=== PATIENT | male | born 1970 | race Caucasian/White ===

== ENCOUNTER 2024-04-30 14:11 | Outpatient (REF) | payer OTHER, SELFPAY ==
--- NOTE | ~2024-04-30 | XR_ITS ---
EXAMINATION: XR KNEE, LEFT CLINICAL INFORMATION: LEFT KNEE PAIN COMPARISON: None available. TECHNIQUE: AP and lateral views of the left knee. FINDINGS: Normal bone mineralization. Benign appearing mixed lytic and sclerotic abnormalities within the metaphyses of the distal femur and proximal tibia, in keeping with medullary bone infarctions. Major differential would include osteochondromas although considered less likely given the multifocality. No significant arthritis evident. Joint spaces preserved in all 3 compartments. Alignment is normal. There is a small amount of joint fluid in the suprapatellar bursa. No significant joint effusion. No soft tissue abnormalities. XR/XR knee LT 2V IMPRESSION: 1. No acute findings of the left knee. 2. Mixed lytic and sclerotic foci in the metaphyses of the femur and tibia most consistent with medullary bone infarcts. 3. The remainder of the exam is normal. Electronically signed by: Delano Guajardo MD 07/09/2024 03:29 PM [facility]
--- NOTE | ~2024-04-30 | XR_ITS ---
EXAMINATION: XR KNEE, RIGHT CLINICAL INFORMATION: RIGHT KNEE PAIN. COMPARISON: None available. TECHNIQUE: AP and lateral views of the right knee. FINDINGS: Normal bone mineralization. Benign appearing mixed lytic and sclerotic abnormalities within the metaphyses of the distal femur and proximal tibia, in keeping with medullary bone infarctions. Major differential would include osteochondromas although considered less likely given the multifocality. No significant arthritis evident. Joint spaces preserved in all 3 compartments. Alignment is normal. There is a small amount of joint fluid in the suprapatellar bursa. No significant joint effusion. No soft tissue abnormalities. XR/XR knee RT 2V IMPRESSION: 1. No acute findings of the right knee. 2. Mixed lytic and sclerotic foci in the metaphyses of the femur and tibia most consistent with medullary bone infarcts. 3. The remainder of the exam is normal. Electronically signed by: Delano Guajardo MD 07/09/2024 03:29 PM [facility]
--- NOTE | ~2024-04-30 | XR_ITS ---
EXAMINATION: XR SHOULDER, RIGHT CLINICAL INFORMATION: RIGHT SHOULDER PAIN COMPARISON: None available. TECHNIQUE: AP external rotation, Grashey, scapular Y, and axillary views of the right shoulder. FINDINGS: Normal bone mineralization. No evidence of fracture, dislocation, or suspicious bone lesion. Normal alignment of the left shoulder joint. Minimal degenerative arthritic changes of the glenohumeral joint. Mild arthritic changes of the AC joint without significant undersurface spurring. Neutral lateral acromion with tiny spurs. No significant supraspinatus outlet narrowing. Subacromial space is preserved. Remainder the bony and soft tissue structures appear normal. XR/XR shoulder RT min 2V IMPRESSION: 1. No acute findings right shoulder. 2. Minimal degenerative arthritis right glenohumeral joint. 2. Mild spurring AC joint and undersurface of the distal acromion. Electronically signed by: Delano Guajardo MD 07/11/2024 02:58 PM [facility]
--- NOTE | ~2024-04-30 | XR_ITS ---
EXAMINATION: XR SHOULDER, LEFT CLINICAL INFORMATION: LEFT SHOULDER PAIN COMPARISON: None available. TECHNIQUE: Three views of the left shoulder. FINDINGS: Normal bone mineralization. No evidence of fracture, dislocation, or suspicious bone lesion. Normal alignment of the left shoulder joint. No significant arthritic changes of the glenohumeral joint. Minimal arthritic changes of the AC joint without undersurface spurring. Neutral lateral acromion with tiny spurs. No significant supraspinatus outlet narrowing. Subacromial space is preserved. Remainder the bony and soft tissue structures appear normal. XR/XR shoulder LT min 2V IMPRESSION: 1. No acute findings left shoulder. 2. Normal glenohumeral joint. 2. Mild spurring AC joint and undersurface of the distal acromion. Electronically signed by: Delano Guajardo MD 07/11/2024 02:56 PM [facility]
--- NOTE | ~2024-04-30 | XR_ITS ---
EXAMINATION: XR CHEST CLINICAL INFORMATION: SOB. HX 30 + YEARS TOBACCO USE. COMPARISON: None available. TECHNIQUE: 2 views of the chest were obtained. FINDINGS: The cardiac, hilar, and mediastinal contours are normal. The lungs are mildly hyperaerated, however clear bilaterally. There is no pneumothorax or pleural effusion. There is no focal osseous or soft tissue abnormality. XR/XR chest 2V IMPRESSION: No active pulmonary disease. Electronically signed by: Delano Guajardo MD 07/09/2024 03:26 PM [facility]
== END 2024-04-30 14:12 | disposition home or self-care (01) ==
LOC: HO.HMGCX 14:11
PROVIDERS: PCP Internal Medicine; Visit Provider Internal Medicine
DX: R06.02 Shortness of breath (principal); Z72.0 Tobacco use; M25.561 Pain in right knee; M25.562 Pain in left knee; M25.511 Pain in right shoulder; M25.512 Pain in left shoulder
CPT/HCPCS: 71046; 73030; 73560

== ENCOUNTER → 2024-04-30 14:20 | Outpatient (BNV) | payer OTHER, SELFPAY | PROVIDERS: PCP Internal Medicine; Visit Provider Radiology Diagnostic Radiology | DX: M25.511 Pain in right shoulder (principal); M25.512 Pain in left shoulder | CPT/HCPCS: 71046; 73030; 73560 ==

== ENCOUNTER 2025-04-28 14:36 | Outpatient (AMB) | payer OTHER, SELFPAY ==
--- NOTE | 2025-04-28 14:39 | MHC.PC.OV ---
Vital Signs 04/28/25 14:41 Height 5 ft 8.9 in Weight 178 lb BMI 26.4 BP 114/86 Blood Pressure Location Lt brachial Position Sitting Respiration 16 Pulse 73 Pulse Source Pulse Oximeter Temp 98.2 F Temp Source Oral Pulse Oximetry (%) 95 Oxygen Delivery Method Room Air Intake Visit Reasons: [employer]/ Back pain Director Of Events Required: No Accompanied by: Self / Same As Patient Allergies Penicillins Allergy (Mild, Verified 04/28/25 14:43) Rash Tobacco use date assessed: 04/28/25 Dental Screening Dental Screen Date: 04/28/25 Did you have a dental visit in the last 12 months?: No Did you have a dental problem in the last 6 months where you did not have access to dental care?: No Was dental information given to patient?: No HPI HPI Comments History of Present Illness Details History of Present Illness The patient is a 54-year-old male presenting with multiple complaints including a stye, chronic lower back pain, knee pain, and insomnia. Hordeolum (stye): - The patient reports a recurrent stye on the left eye, previously experienced earlier this year, which swelled before coming to a head. - He has attempted self-treatment with Stridex pads, mistaking it for a pimple, and has been advised to use warm compresses to expedite resolution. Gout: - The patient has a history of gout with the last attack occurring approximately a year ago. - He was previously prescribed allopurinol but discontinued it due to adverse effects, using it only during flare-ups. Chronic lower back pain with possible sciatica: - The patient reports chronic lower back pain for several years, with pain radiating down the left leg, suggestive of sciatica. - No prior imaging has been conducted for this condition. Bilateral knee pain: - The patient experiences bilateral knee pain, which has been persistent for years and affects his mobility. 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 Right shoulder pain: - The patient reports right shoulder pain, particularly when lifting, which has been ongoing for an unspecified duration. Insomnia: - The patient has chronic insomnia, characterized by difficulty falling asleep and feeling fatigued upon waking. - He denies using any sleep aids and has not established a bedtime routine. Panic attacks: - The patient reports experiencing panic attacks, which he associates with the stress of his mother's recent passing. Allergies: - The patient suffers from allergic rhinitis, for which he takes Claritin, although financial constraints limit his access to medication. Tobacco use disorder: - The patient has a 40-year history of smoking and continues to smoke. Review of Systems - Eyes: Reports recurrent stye on the left eye. - Musculoskeletal: Reports chronic lower back pain radiating to the left leg, bilateral knee pain, and right shoulder pain. - Neurological: Reports insomnia and panic attacks. - Respiratory: Denies dyspnea or cough. - Gastrointestinal: Denies changes in bowel habits. - Allergic/Immunologic: Reports allergic rhinitis. 10-point ROS reviewed and negative except as noted in HPI Past Medical History - Gout, last attack approximately one year ago. - Chronic lower back pain with possible sciatica. - Bilateral knee pain with history of tendinitis in the left knee. - Right shoulder pain. - Insomnia, chronic. - Panic attacks, associated with stress. - Allergic rhinitis. - Tobacco use disorder, 40-year history of smoking. Health Maintenance - Colon cancer screening with stool test (Cologuard) discussed and planned. - Low dose CT scan for lung cancer screening due to smoking history. Physical Exam General: Well-appearing, in no acute distress. Vital signs: Within normal limits. HEENT: Normocephalic, atraumatic. PERRLA, EOMI. Conjunctiva clear, sclera anicteric. Oropharynx clear, mucous membranes moist. TMs intact bilaterally. Noted stye on the left eye. Neck: Supple, no lymphadenopathy, no thyromegaly, no JVD or carotid bruits. Cardiovascular: RRR, normal S1/S2, no murmurs, rubs, or gallops. Peripheral pulses 2+ and symmetric. No edema. Respiratory: Lungs clear to auscultation bilaterally, no wheezes, rales, or rhonchi. Normal effort. Abdomen: Soft, non-tender, non-distended. Normoactive bowel sounds. No hepatosplenomegaly, no masses. MSK: Full range of motion, no joint swelling or deformity. Normal gait. Reports chronic lower back pain with sciatica on the left side, bilateral knee pain, and right shoulder pain. History of tendinitis in the left knee. Skin: Warm, dry, intact. No rashes, lesions, or pallor. Neuro: Alert and oriented x3. Cranial nerves II-XII intact. Strength 5/5 throughout. Sensation intact. Reflexes 2+ symmetric. Normal coordination and gait. Psych: Appropriate mood and affect. Normal judgment and insight. Reports panic attacks and trouble sleeping. Plan 1. Hordeolum (Stye) - Advise warm compresses to facilitate drainage and resolution. - Consider ibuprofen for pain management if needed. 2. Gout - Discussed previous use of allopurinol and its discontinuation due to side effects. - No current medication plan due to patient's preference to avoid pills. 3. Chronic Lower Back Pain With Possible Sciatica - Plan to obtain x-ray of the lumbar spine to assess for underlying pathology. - Recommend ibuprofen for pain relief and heat application for muscle relaxation. 4. Bilateral Knee Pain - Plan to consider physical therapy for strengthening and pain management. - Ibuprofen prescribed for pain relief. 5. Right Shoulder Pain - Plan to obtain x-ray to evaluate the shoulder. - Consider physical therapy for strengthening and pain management. 6. Insomnia - Referral to cognitive behavioral therapy for insomnia (CBTI) for sleep management. - Discussed use of melatonin as a natural sleep aid. 7. Panic Attacks - Consider referral to therapy for management of panic attacks and associated stress. 8. Allergic Rhinitis - Prescribed Claritin for symptom management, ensuring insurance coverage. 9. Tobacco Use Disorder - Discussed the importance of smoking cessation and potential health benefits. Discussion Notes During the visit, we discussed the management of the patient's multiple conditions, including the use of warm compresses for the stye and ibuprofen for pain management. We also talked about the importance of smoking cessation and the benefits of cognitive behavioral therapy for insomnia. I recommended a low dose CT scan for lung cancer screening and a Cologuard test for colon cancer screening. We agreed on a follow-up visit in two weeks to review the results and adjust the treatment plan as necessary. Patient was informed and verbally consented to the use of an ambient scribe for clinic note documentation during this visit. Patient Instructions - Apply warm compresses to the stye several times a day to help it drain. - Take ibuprofen with food to manage pain, but avoid taking it on an empty stomach. - Use Claritin for allergy symptoms as prescribed. - Follow up in two weeks for results and further management. - Consider starting cognitive behavioral therapy for insomnia. - Schedule a low dose CT scan for lung cancer screening and complete the Cologuard test for colon cancer screening. [facility] Medical History (Updated 04/28/25 @ 15:14 by Cleveland Breen MD) Right shoulder pain Bilateral knee pain Arthritis Chronic pain Chronic lower back pain Family History (Updated 04/28/25 @ 14:46 by Edilia Mata MA) Father Heart problem Gout Mother COPD (chronic obstructive pulmonary disease) Kidney problem Heart problem Social History Housing: House Alcohol intake: current Alcohol intake frequency: does not drink Patient Tobacco Use Status: Current everyday Tobacco user Cigarettes Per Day: 12 service: No Current occupational status: unemployed Cognitive needs: Yes (cane) Hearing needs: No Vision needs: Yes (reading glasses) Questionnaire PHQ-9 Over the last 2 weeks, how often have you been bothered by any of the following problems? 1. Little interest or pleasure in doing things: nearly every day 2. Feeling down, depressed, or hopeless: several days 3. Trouble falling or staying asleep, or sleeping too much: nearly every day 4. Feeling tired or having little energy: nearly every day 5. Poor appetite or overeating: not at all 6. Feeling bad about yourself - or that you are a failure or have let yourself or your family down: nearly every day 7. Trouble concentrating on things, such as reading the newspaper or watching television: more than half the days 8. Moving or speaking so slowly that other people could have noticed. Or the opposite - being so fidgety or restless that you have been moving around a lot more than usual: nearly every day 9. Thoughts that you would be better off or of hurting yourself in some way: not at all Total score: 18 Source: Developed by Drs. Myles Wilks, Arlene May, Jair Ray and colleagues, with an educational handy from [employer]. Thrive Questionnaire Date Thrive assessed: 04/28/25 I am a: Patient What is your living situation today?: I choose not to answer this question Within the past 12 months, did the food you bought not last and you didn't have the money to get more?: I choose not to answer this question Within the past 12 months, did you worry whether your food would run out before you got money to buy more?: I choose not to answer this question Do you have trouble paying for medicines?: Yes Do you have trouble getting transportation to medical appointments?: Yes Do you have trouble paying your heating and electricity bill?: Yes Do you have trouble taking care of your child, family member or friend?: No Are you currently unemployed and looking for a job?: I choose not to answer this question Are you interested in more education?: I choose not to answer this question Please select the resources that you would like help with: Housing/Half-Way, Utilities and Job search/training Currently or been in a relationship where the following occur: I choose not to answer THRIVE Score: 2 AUDIT C Alcohol Use Questionnaire (AUDIT-C) 1. How often do you have a drink containing alcohol?: Never Total Score: 0 CHA-7 AMB Questionnaire CHA-7 Date CHA - 7 assessed: 04/28/25 Feeling nervous, anxious, or on edge: 3 = Nearly every day Not being able to stop or control worryin = Nearly every day Worrying too much about different things: 3 = Nearly every day Trouble relaxin = Nearly every day Being so restless that it is hard to sit still: 2 = More than half the days Becoming easily annoyed or irritable: 2 = More than half the days Feeling afraid as if something awful might happen: 3 = Nearly every day Total CHA-7 score (0-4 normal; 5-9 mild; 10-14 moderate; 15-21 severe): 19 Source: Developed by Drs. Myles Wilks, Arlene May, Jair Ray and colleagues, with an educational handy from [employer]. Physical exam (Primary Care) Currently or been in a relationship where the following occur: I choose not to answer Coding Level of Care Code New Pt Level 3 (82965) Diagnoses Encounter to establish care Z76.89 Encounter for screening, unspecified Z13.9 Counseling, unspecified Z71.9 Screening for diabetes mellitus Z13.1 Hypertension screen Z13.6 Screening for lipoid disorders Z13.220 Screening for depression Z13.31 Encounter for colorectal cancer screening Z12.11; Z12.12 Gout, unspecified cause, unspecified chronicity, unspecified site M10.9 Gout site: unspecified site Gout etiology: unspecified cause Chronicity: unspecified Overweight (BMI 25.0-29.9) E66.3 Dorsalgia of lumbar region M54.50 Sciatica, left side M54.32 Hordeolum externum (stye) H00.019 Joint pain M25.50 Difficulty walking R26.2 Fatigue R53.83 Nicotine use Z72.0 Chronic lower back pain M54.50; G89.29 Insomnia G47.00 Chronic pain G89.29 Arthritis M19.90 Bilateral knee pain M25.561; M25.562 Right shoulder pain M25.511 Assessment & Plan Assessment & Plan (1) Encounter to establish care: Code(s): Z76.89 - Persons encountering health services in other specified circumstances (2) Encounter for screening, unspecified: Code(s): Z13.9 - Encounter for screening, unspecified (3) Counseling, unspecified: Code(s): Z71.9 - Counseling, unspecified (4) Screening for diabetes mellitus: Code(s): Z13.1 - Encounter for screening for diabetes mellitus (5) Hypertension screen: Code(s): Z13.6 - Encounter for screening for cardiovascular disorders (6) Screening for lipoid disorders: Code(s): Z13.220 - Encounter for screening for lipoid disorders (7) Screening for depression: Code(s): Z13.31 - Encounter for screening for depression (8) Encounter for colorectal cancer screening: Code(s): Z12.11 - Encounter for screening for malignant neoplasm of colon; Z12.12 - Encounter for screening for malignant neoplasm of rectum (9) Gout: Code(s): M10.9 - Gout, unspecified Qualifiers: Gout site: unspecified site Gout etiology: unspecified cause Chronicity: unspecified Qualified Code(s): M10.9 - Gout, unspecified (10) Overweight (BMI 25.0-29.9): Code(s): E66.3 - Overweight (11) Dorsalgia of lumbar region: Code(s): M54.50 - Low back pain, unspecified (12) Sciatica, left side: Code(s): M54.32 - Sciatica, left side (13) Hordeolum externum (stye): Code(s): H00.019 - Hordeolum externum unspecified eye, unspecified eyelid (14) Joint pain: Code(s): M25.50 - Pain in unspecified joint (15) Difficulty walking: Code(s): R26.2 - Difficulty in walking, not elsewhere classified (16) Fatigue: Code(s): R53.83 - Other fatigue (17) Nicotine use: Code(s): Z72.0 - Tobacco use (18) Chronic lower back pain: Code(s): M54.50 - Low back pain, unspecified; G89.29 - Other chronic pain Category: Medical (19) Insomnia: Code(s): G47.00 - Insomnia, unspecified (20) Chronic lower back pain: Code(s): M54.50 - Low back pain, unspecified; G89.29 - Other chronic pain Category: Medical (21) Chronic pain: Code(s): G89.29 - Other chronic pain Category: Medical (22) Arthritis: Code(s): M19.90 - Unspecified osteoarthritis, unspecified site Category: Medical (23) Bilateral knee pain: Code(s): M25.561 - Pain in right knee; M25.562 - Pain in left knee Category: Medical (24) Right shoulder pain: Code(s): M25.511 - Pain in right shoulder Category: Medical Plan Orders: Orders HIV Ab/Ag Today Z13.9 - Encounter for screening, unspecified, Z76.89 - Persons encountering health services in other specified circumstances Lipid Panel Today Z13.9 - Encounter for screening, unspecified, Z76.89 - Persons encountering health services in other specified circumstances Vitamin B12 and Folate Today Z13.9 - Encounter for screening, unspecified, Z76.89 - Persons encountering health services in other specified circumstances Vitamin D 1,25 dihydroxy Today Z13.9 - Encounter for screening, unspecified, Z76.89 - Persons encountering health services in other specified circumstances CT lung screening Today Z13.9 - Encounter for screening, unspecified, Z72.0 - Tobacco use, Z76.89 - Persons encountering health services in other specified circumstances XR lumbar spine 2-3V Today G89.29 - Other chronic pain, M54.50 - Low back pain, unspecified, Z13.9 - Encounter for screening, unspecified, Z76.89 - Persons encountering health services in other specified circumstances XR Knee Hector 1or 2V Today G89.29 - Other chronic pain, M19.90 - Unspecified osteoarthritis, unspecified site, M54.50 - Low back pain, unspecified PT Evaluation and Treatment Today G89.29 - Other chronic pain, M19.90 - Unspecified osteoarthritis, unspecified site, M25.511 - Pain in right shoulder, M25.561 - Pain in right knee, M25.562 - Pain in left knee, M54.50 - Low back pain, unspecified Complete Blood Count Auto Diff Today Z13.9 - Encounter for screening, unspecified, Z76.89 - Persons encountering health services in other specified circumstances Comprehensive Met. Panel Today Z13.9 - Encounter for screening, unspecified, Z76.89 - Persons encountering health services in other specified circumstances Hemoglobin A1c Today Z13.9 - Encounter for screening, unspecified, Z76.89 - Persons encountering health services in other specified circumstances Hepatitis B Surface Antibody Today Z13.9 - Encounter for screening, unspecified, Z76.89 - Persons encountering health services in other specified circumstances Hepatitis B Surface Antigen Today Z13.9 - Encounter for screening, unspecified, Z76.89 - Persons encountering health services in other specified circumstances Hepatitis C Antibody Today Z13.9 - Encounter for screening, unspecified, Z76.89 - Persons encountering health services in other specified circumstances UA CC w/rflx Micro + Cult Today Z13.9 - Encounter for screening, unspecified, Z76.89 - Persons encountering health services in other specified circumstances Uric Acid Today Z13.9 - Encounter for screening, unspecified, Z76.89 - Persons encountering health services in other specified circumstances CRP High Sensitivity Today M25.50 - Pain in unspecified joint, R53.83 - Other fatigue Erythrocyte Sedimentation Rate Today M25.50 - Pain in unspecified joint, R53.83 - Other fatigue XR shoulder RT min 2V Today G89.29 - Other chronic pain, M19.90 - Unspecified osteoarthritis, unspecified site Referrals Nurse Navigator Referral G47.00 - Insomnia, unspecified Cologuard Test Z12.11 - Encounter for screening for malignant neoplasm of colon, Z12.12 - Encounter for screening for malignant neoplasm of rectum, Z13.9 - Encounter for screening, unspecified, Z76.89 - Persons encountering health services in other specified circumstances Medications: New ibuprofen 800 mg PO Q8H 30 tabs 0RF cetirizine (Allergy Relief (cetirizine)) 10 mg PO DAILY PRN 90 tabs 0RF allergy symptoms
[2025-04-28 14:41] VITALS: BP 114/86; PULSE 73; RESP 16; TEMP 36.8; O2SAT 95; BMI 26.4
== END 2025-04-28 15:18 | disposition home or self-care (01) ==
LOC: HO.HMCFMS 14:37
PROVIDERS: PCP Student in an Organized Health Care Education/Training Program; Visit Provider Student in an Organized Health Care Education/Training Program
DX: M10.9 Gout, unspecified (principal); E66.3 Overweight; M54.50 Low back pain, unspecified; M54.32 Sciatica, left side; H00.016 Hordeolum externum left eye, unspecified eyelid; M25.50 Pain in unspecified joint; R26.2 Difficulty in walking, not elsewhere classified; R53.83 Other fatigue; G47.00 Insomnia, unspecified; M25.561 Pain in right knee; M25.562 Pain in left knee; M25.511 Pain in right shoulder

== ENCOUNTER 2025-04-28 14:36 | Outpatient (REF) | payer OTHER, SELFPAY ==
[2025-04-28 17:56] LABS: MANUAL DIFF FLAG NO
[2025-04-28 18:12] LABS: Appearance Urine Clear; Glucose Urine UA Negative (Negative); PH 5.5 (5.0-9.0); Specific Gravity - Urine 1.020 (1.005-1.025); UMIC TRIGGER UACC YES
[2025-04-28 18:14] LABS: Hematocrit 41.5 % (42.0-52.0); Hemoglobin 14.6 g/dl (14.0-18.0); Imm Gran Abs Auto 0.02 X10*3/uL (0.00-0.03); Imm Gran Pct Auto 0.3 % (0.0-0.4); Lymphocytes Absolute Auto 1.9 X10*3/uL (1.2-4.9); Mean Corpuscular HGB Conc 35.2 g/dl (31.0-36.0); Mean Corpuscular Hemoglobin 34.8 pg (27.0-33.0); Mean Corpuscular Volume 98.8 fL (80.0-98.0); NRBC Abs Auto 0.000 X10*3/uL (0.0-0.012); NRBC Pct Auto 0.0 /100WBC (0.0-0.2); Platelet Count 163 X10*3/uL (160-400); Red Blood Count 4.20 X10*6/uL (4.60-5.80); White Blood Count 5.9 X10*3/uL (4.8-10.8)
[2025-04-28 18:31] LABS: Alanine Aminotransferase 34 U/L (0-40); Albumin Level 4.9 g/dL (3.5-5.0); Alkaline Phosphatase 98 U/L (39-117); Anion Gap 14 (12-20); Aspartate Amino Transferase 25 U/L (5-37); Blood Urea Nitrogen 12 mg/dL (9-16); Calcium 9.7 mg/dL (8.4-10.2); Carbon Dioxide 26 mmol/L (22-29); Chloride 108 mmol/L (96-108); Cholesterol 237 mg/dL (<200); Estimated Glomerular Filt Rate > 60; HDL Cholesterol 37 mg/dL (>40); Potassium 4.5 mmol/L (3.3-5.1); Sodium 143 mmol/L (135-145); Total Protein 7.5 g/dL (6.5-8.0); Triglycerides 105 mg/dL (<150); Uric Acid 7.4 mg/dL (3.4-7.0)
[2025-04-28 19:05] LABS: Folate 14.5 ng/mL (> or = 4.0); Vitamin B12 402 pg/mL (200-900)
[2025-04-28 19:09] LABS: Erythrocyte Sedimentation Rate 28 MM/HR (0-15)
[2025-04-29 08:23] LABS: HBS Num1 1.39 mIU/mL (0-7.99); HBsAGNum1 0.44 S/CO (0.00-0.99); HIV Num 1 0.05 S/CO (0.00-0.99); Hepatitis B Surface Antigen Negative (Negative); ~HepC Num1 0.06 S/CO (0.00-0.79); ~Hepatitis B Surface Antibody NONREACTIVE (Nonreactive); ~Hepatitis C Antibody Nonreactive (Nonreactive)
[2025-05-02 19:33] LABS: VITAMIN D (1,25 OH) D3 53 pg/mL; Vit D (1,25-Dihydroxy) Total 53 pg/mL (18-72); Vitamin D (1,25 OH) D2 <8 pg/mL
== END 2025-04-28 14:37 | disposition home or self-care (01) ==
LOC: HO.HKASLDS 14:36
PROVIDERS: PCP Student in an Organized Health Care Education/Training Program; Visit Provider Student in an Organized Health Care Education/Training Program
DX: Z76.89 Persons encountering health services in other specified circumstances (principal); Z13.9 Encounter for screening, unspecified; Z12.11 Encounter for screening for malignant neoplasm of colon; Z12.12 Encounter for screening for malignant neoplasm of rectum; Z13.1 Encounter for screening for diabetes mellitus; Z13.6 Encounter for screening for cardiovascular disorders; Z13.220 Encounter for screening for lipoid disorders; Z13.31 Encounter for screening for depression; Z71.9 Counseling, unspecified; M54.50 Low back pain, unspecified; G89.29 Other chronic pain; M25.50 Pain in unspecified joint; R53.83 Other fatigue; G47.00 Insomnia, unspecified; M19.90 Unspecified osteoarthritis, unspecified site; M25.561 Pain in right knee; M25.562 Pain in left knee; M25.511 Pain in right shoulder; F17.210 Nicotine dependence, cigarettes, uncomplicated; M10.9 Gout, unspecified; E66.3 Overweight; M54.32 Sciatica, left side; H00.019 Hordeolum externum unspecified eye, unspecified eyelid; R26.2 Difficulty in walking, not elsewhere classified; Z68.26 Body mass index [BMI] 26.0-26.9, adult
CPT/HCPCS: 36415; 80053; 80061; 81001; 82607; 82652; 82746; 83036; 84550; 85025; 85652; 86141; 86706; 86803; 87340; 87389; 99202

== ENCOUNTER 2025-05-02 15:05 | Outpatient (REF) | payer OTHER, SELFPAY ==
--- NOTE | ~2025-05-02 | XR_ITS ---
Exam: X-ray, bilateral knees.XR KNEE 1-2 VIEWS BILATERAL TECHNIQUE: AP and lateral views lower extremity joint, bilateral knees INDICATION: G89.29 - Other chronic pain COMPARISON: None available. FINDINGS: RIGHT KNEE: Patchy sclerotic areas noted in the intramedullary bone in the distal metaphysis of the femur and proximal metadiaphysis of the tibia. There is no extension to the subchondral marrow. There is no joint effusion. Joint spaces are preserved. LEFT KNEE: Patchy serpentine areas of sclerosis are noted in the distal femoral metaphysis and the proximal diaphysis and metaphysis of the tibia now extending to subchondral bone. There is no joint effusion. Joint spaces are preserved. XR/XR Knee Hector 1or 2V IMPRESSION: Right knee: Osteonecrosis of the distal femur and proximal tibia. Left knee: Osteonecrosis the distal femur and proximal tibia. Electronically signed by: Gamaliel Monet MD 05/02/2025 03:39 PM EDT
--- NOTE | ~2025-05-02 | XR_ITS ---
EXAMINATION: XR LUMBOSACRAL SPINE CLINICAL INFORMATION: M54.50 - Low back pain, unspecified COMPARISON: None available. TECHNIQUE: Three views of the lumbosacral spine. FINDINGS: There is mild arthritic calcification in the abdominal aorta. There is a transitional L5 segment that is sacralized on the left greater than right. There is mild disc space narrowing at T12-L1 and L1-2. There is no listhesis. There is mild loss of height of L4 that is likely physiologic and chronic. XR/XR lumbar spine 2-3V IMPRESSION: Sacralized L5 segment. Mild loss of height of L4 that is likely physiologic and/or chronic. Electronically signed by: Gamaliel Monet MD 05/02/2025 03:44 PM EDT
--- NOTE | ~2025-05-02 | XR_ITS ---
EXAMINATION: XR SHOULDER, RIGHT CLINICAL INFORMATION: M19.90 - Unspecified osteoarthritis, unspecified site COMPARISON: 04/30/2024. TECHNIQUE: Three views of the right shoulder. FINDINGS: Normal bone mineralization. No fracture, dislocation, or suspicious bone lesion. Normal alignment. The glenohumeral joint demonstrates minimal degenerative arthritis. The AC joint is demonstrates minimal superior surface spurring. There is a type II acromion. No undersurface spurring. The subacromial space is preserved. Remainder of the soft tissue and bony structures appear normal. XR/XR shoulder RT min 2V IMPRESSION: 1. No acute findings of the right shoulder. 2. Minimal degenerative arthritis of the glenohumeral joint and AC joint. Electronically signed by: Delano Guajardo MD 05/02/2025 03:36 PM EDT
== END 2025-05-02 15:06 | disposition home or self-care (01) ==
LOC: HO.HMGCX 15:05
PROVIDERS: PCP Student in an Organized Health Care Education/Training Program; Visit Provider Student in an Organized Health Care Education/Training Program
DX: G89.29 Other chronic pain (principal); M54.50 Low back pain, unspecified; M19.011 Primary osteoarthritis, right shoulder; Z13.89 Encounter for screening for other disorder; Z76.89 Persons encountering health services in other specified circumstances
CPT/HCPCS: 72100; 73030; 73560

== ENCOUNTER → 2025-05-02 15:09 | Outpatient (BNV) | payer OTHER, SELFPAY | PROVIDERS: PCP Student in an Organized Health Care Education/Training Program; Visit Provider Radiology Diagnostic Radiology | DX: M54.50 Low back pain, unspecified (principal); M87.851 Other osteonecrosis, right femur; M87.852 Other osteonecrosis, left femur; M87.861 Other osteonecrosis, right tibia; M87.862 Other osteonecrosis, left tibia | CPT/HCPCS: 72100; 73030; 73560 ==

== ENCOUNTER 2025-05-12 15:02 | Outpatient (AMB) | payer OTHER, SELFPAY ==
[2025-05-12 15:04] VITALS: BP 150/101; PULSE 69; RESP 20; TEMP 36.6; O2SAT 95; BMI 26.3
--- NOTE | 2025-05-12 15:04 | A.OFFPC_ITS ---
Vital Signs 05/12/25 15:04 Height 5 ft 8.9 in Weight 177 lb 8 oz BMI 26.3 BP 150/101 H Blood Pressure Location Rt brachial Position Sitting Respiration 20 Pulse 69 Pulse Source Pulse Oximeter Temp 97.9 F Temp Source Oral Pulse Oximetry (%) 95 Oxygen Delivery Method Room Air Intake Visit Reasons: 2 wk f/u Scrap Cutter Required: No Accompanied by: Self / Same As Patient Allergies Penicillins Allergy (Mild, Verified 05/12/25 15:04) Rash Tobacco use date assessed: 05/12/25 Dental Screening Dental Screen Date: 05/12/25 Did you have a dental visit in the last 12 months?: No Did you have a dental problem in the last 6 months where you did not have access to dental care?: No Was dental information given to patient?: No HPI HPI Comments History of Present Illness Details History of Present Illness The patient is a 55-year-old male presenting for results of previous tests and ongoing management of multiple chronic conditions. Stye: - The patient reports a stye that has no t worsened but remains bothersome. Gout: - The patient has a history of gout with mildly elevated uric acid levels at 7.4 mg/dL. 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 Bilateral knee pain: - The patient reports bilateral knee bob n, with x-rays showing osteonecrosis of the distal femur and proximal tibia. Right shoulder pain: - The patient has right shoulder pain wi th x-ray findings of minimal degenerative arthritis. Insomnia: - The patient suffers from insomnia, wit h a history of difficulty sleeping for over 40 years. Hyperlipidemia: - The patient has hyperlipidemia with to omar cholesterol at 237 mg/dL and LDL at 197 mg/dL. Elevated inflammatory markers: - The patient has elevated inflammatory markers, including ESR at 28 mm/hr and CRP at 31 mg/L. Review of Systems - Ophthalmologic: Reports stye, no worse landy. - Musculoskeletal: Reports chronic lower back pain, bilateral knee pain, and right shoulder pain. - Neurological: Reports insomnia for ove r 40 years. - Allergic/Immunologic: Reports allergie s. 10-point ROS reviewed and negative excep t as noted in HPI Past Medical History - History of gout - Chronic lower back pain with possible sciatica - Bilateral knee pain - Right shoulder pain - Insomnia - Allergies Health Maintenance - Home sleep study ordered for insomnia evaluation. - Cologuard test completed for colon can cer screening. - Low dose CT scan of the lungs pending for cancer screening due to smoking history. Physical Exam General: Well-appearing, in no acute distress. Vital signs: Within normal limits. HEENT: Normocephalic, atraumatic. PERRLA, EOMI. Conjunctiva clear, sclera anic teric. Oropharynx clear, mucous membranes moist. TMs intact bilaterally. Neck: Supple, no lymphadenopathy, no thyromegaly, no JVD or carotid bruits. Cardiovascular: RRR, normal S1/S2, no murmurs, rubs, or gallops. Peripheral pulses 2+ and symmetric. No edema. Respiratory: Lungs clear to auscultation bilaterally, no wheezes, rales, or rhonchi. Normal effort. Abdomen: Soft, non-tender, non-distended. Normoactive bowel sounds. No hepatosplenomegaly, no masses. MSK: Full range of motion, no joint swelling or deformity. Normal gait. Bilateral knee pain with osteonecrosis of the distal femur and proximal tibia noted. Right shoulder pain with minimal degenerative arthritis. Skin: Warm, dry, intact. No rashes, lesions, or pallor. Neuro: Alert and oriented x3. Cranial nerves II-XII intact. Strength 5/5 throughout. Sensation intact. Reflexes 2+ symmetric. Normal coordination and gait. Psych: Appropriate mood and affect. Normal judgment and insight. Insomnia noted. Plan 1. Stye - Monitor the stye for any changes or wo rsening symptoms. 2. Gout - Manage gout with dietary modifications to reduce protein intake and monitor uric acid levels. 3. Chronic Lower Back Pain With Possible Sciatica - Continue monitoring and consider physi estuardo therapy for chronic lower back pain management. 4. Bilateral Knee Pain - Refer to orthopedic surgeon for furthe r evaluation and possible MRI for osteonecrosis. 5. Right Shoulder Pain - Monitor right shoulder pain and consid er physical therapy if symptoms persist. 6. Insomnia - Initiate cognitive behavioral therapy for insomnia and consider melatonin supplementation. 7. Hyperlipidemia - Start statin therapy to manage hyperli pidemia and reduce cardiovascular risk. 8. Elevated Inflammatory Markers - Investigate underlying causes of eleva andres inflammatory markers and consider lifestyle modifications. Discussion Notes During the visit, we discussed the results of your recent tests and the management of your chronic conditions. For your insomnia, I recommended cognitive behavioral therapy and melatonin supplementation. We also talked about starting statin therapy to manage your hyperlipidemia and reduce cardiovascular risk. I have referred you to an orthopedic surgeon for further evaluation of your knee pain, and a home sleep study has been ordered to assess your insomnia further. Please ensure to follow up with the respective specialists and complete the recommended tests. Patient was informed and verbally consented to the use of an ambient scribe for clinic note documentation during this visit. Patient Instructions - Monitor your stye for any changes or w orsening symptoms. - Follow a diet low in protein to manage gout. - Attend physical therapy sessions for b ack and shoulder pain management. - Complete the home sleep study as instr ucted. - Start taking the prescribed statin med ication to manage cholesterol levels. - Use melatonin as directed to help with sleep. - Follow up with the orthopedic surgeon for knee evaluation. Total time spent caring for the patient today was 45 minutes. This includes time spent before the visit reviewing the chart, time spent documenting, and time spent reviewing laboratory results, diagnostic imaging, medications, performing a medically necessary evaluation, counseling on diagnoses, care coordination, ordering appropriate tests, ordering appropriate medications. [facility] Medical History (Updated 05/12/25 @ 15:32 by Cleveland Breen MD) Insomnia Hyperlipidemia Osteonecrosis Right shoulder pain Bilateral knee pain Arthritis Chronic pain Chronic lower back pain Family History Father Heart problem Gout Mother COPD (chronic obstructive pulmonary disease) Kidney problem Heart problem Social History Housing: House Alcohol intake: current Alcohol intake frequency: does not drink Patient Tobacco Use Status: Current everyday Tobacco user Cigarettes Per Day: 12 service: No Current occupational status: unemployed Cognitive needs: Yes (cane) Hearing needs: No Vision needs: Yes (reading glasses) Questionnaire PHQ-9 Over the last 2 weeks, how often have you been bothered by any of the following problems? 1. Little interest or pleasure in doing things: nearly every day 2. Feeling down, depressed, or hopeless: several days 3. Trouble falling or staying asleep, or sleeping too much: nearly every day 4. Feeling tired or having little energy: nearly every day 5. Poor appetite or overeating: not at all 6. Feeling bad about yourself - or that you are a failure or have let yourself or your family down: nearly every day 7. Trouble concentrating on things, such as reading the newspaper or watching television: more than half the days 8. Moving or speaking so slowly that other people could have noticed. Or the opposite - being so fidgety or restless that you have been moving around a lot more than usual: nearly every day 9. Thoughts that you would be better off or of hurting yourself in some way: not at all Total score: 18 Source: Developed by Drs. Myles Wilks, Arlene May, Jair Ray and colleagues, with an educational handy from [employer]. Thrive Questionnaire Date Thrive assessed: 05/12/25 I am a: Patient What is your living situation today?: I choose not to answer this question Within the past 12 months, did the food you bought not last and you didn't have the money to get more?: I choose not to answer this question Within the past 12 months, did you worry whether your food would run out before you got money to buy more?: I choose not to answer this question Do you have trouble paying for medicines?: Yes Do you have trouble getting transportation to medical appointments?: Yes Do you have trouble paying your heating and electricity bill?: Yes Do you have trouble taking care of your child, family member or friend?: No Do you have trouble with day-to-day activities such as bathing, preparing meals, shopping, managing finances, etc.?: Yes Are you currently unemployed and looking for a job?: I choose not to answer this question Are you interested in more education?: I choose not to answer this question Please select the resources that you would like help with: Housing/Usp, Utilities and Job search/training Currently or been in a relationship where the following occur: I choose not to answer THRIVE Score: 2 AUDIT C Alcohol Use Questionnaire (AUDIT-C) 1. How often do you have a drink containing alcohol?: Never 3. How often do you have six or more drinks on one occasion?: Never Total Score: 0 CHA-7 AMB Questionnaire CHA-7 Date CHA - 7 assessed: 05/12/25 Feeling nervous, anxious, or on edge: 3 = Nearly every day Not being able to stop or control worryin = Nearly every day Worrying too much about different things: 3 = Nearly every day Trouble relaxin = Nearly every day Being so restless that it is hard to sit still: 2 = More than half the days Becoming easily annoyed or irritable: 2 = More than half the days Feeling afraid as if something awful might happen: 3 = Nearly every day Total CHA-7 score (0-4 normal; 5-9 mild; 10-14 moderate; 15-21 severe): 19 Source: Developed by Drs. Myles Wilks, Arlene May, Jair Ray and colleagues, with an educational handy from [employer]. Physical exam (Primary Care) Vital Signs: Last Vital Signs Temp 97.9 F 05/12/25 15:04 Pulse 69 05/12/25 15:04 Resp 20 05/12/25 15:04 BP 150/101 H 05/12/25 15:04 Pulse Ox 95 05/12/25 15:04 Oxygen Delivery Method Room Air 05/12/25 15:04 BMI result Body Mass Index 26.3 Tobacco/Smoking Status: Tobacco use Status Tobacco use date assessed 05/12/25 05/12/25 15:07 Patient Tobacco Use Status Current everyday Tobacco 05/12/25 15:07 PHQ-9: PHQ-9 Score PHQ-9: Total score 18 05/12/25 15:07 Thrive Assessment: Date of Thrive Assessment Date Thrive assessed 05/12/25 05/12/25 15:07 Currently or been in a relationship where the following occur: I choose not to answer Coding Level of Care Code Est Pt Level 4 (05070) Diagnoses Chronic lower back pain M54.50; G89.29 Bilateral knee pain M25.561; M25.562 Right shoulder pain M25.511 Insomnia G47.00 Hyperlipidemia E78.5 Hordeolum externum H00.019 Gout M10.9 Degenerative joint disease of acromioclavicular joint M19.019 Elevated erythrocyte sedimentation rate R70.0 Elevated C-reactive protein (CRP) R79.82 Assessment & Plan Assessment & Plan (1) Chronic lower back pain: Code(s): M54.50 - Low back pain, unspecified; G89.29 - Other chronic pain Category: Medical (2) Bilateral knee pain: Code(s): M25.561 - Pain in right knee; M25.562 - Pain in left knee Category: Medical (3) Right shoulder pain: Code(s): M25.511 - Pain in right shoulder Category: Medical (4) Insomnia: Code(s): G47.00 - Insomnia, unspecified Category: Medical (5) Hyperlipidemia: Code(s): E78.5 - Hyperlipidemia, unspecified Category: Medical (6) Hordeolum externum: Code(s): H00.019 - Hordeolum externum unspecified eye, unspecified eyelid (7) Gout: Code(s): M10.9 - Gout, unspecified (8) Degenerative joint disease of acromioclavicular joint: Code(s): M19.019 - Primary osteoarthritis, unspecified shoulder (9) Elevated erythrocyte sedimentation rate: Code(s): R70.0 - Elevated erythrocyte sedimentation rate (10) Elevated C-reactive protein (CRP): Code(s): R79.82 - Elevated C-reactive protein (CRP) Plan Orders: Orders RT home sleep study Today G47.00 - Insomnia, unspecified Referrals Orthopedics Referral M25.561 - Pain in right knee, M25.562 - Pain in left knee, M87.9 - Osteonecrosis, unspecified Medications: New rosuvastatin 10 mg PO DAILY 90 tabs 0RF E78.5 - Hyperlipidemia, unspecified melatonin 10 mg PO BEDTIME PRN 30 caps 0RF sleep
== END 2025-05-12 15:45 | disposition home or self-care (01) ==
LOC: HO.HMCFMS 15:03
PROVIDERS: PCP Student in an Organized Health Care Education/Training Program; Visit Provider Student in an Organized Health Care Education/Training Program
DX: M54.50 Low back pain, unspecified (principal); G89.29 Other chronic pain; M25.561 Pain in right knee; M25.562 Pain in left knee; M25.511 Pain in right shoulder; G47.00 Insomnia, unspecified; E78.5 Hyperlipidemia, unspecified; H00.019 Hordeolum externum unspecified eye, unspecified eyelid; M10.9 Gout, unspecified; M19.019 Primary osteoarthritis, unspecified shoulder; R70.0 Elevated erythrocyte sedimentation rate; R79.82 Elevated C-reactive protein (CRP)

== ENCOUNTER → 2025-05-12 15:02 | Outpatient (BNVA) | payer OTHER, SELFPAY | PROVIDERS: PCP Student in an Organized Health Care Education/Training Program; Visit Provider Student in an Organized Health Care Education/Training Program | DX: M25.561 Pain in right knee (principal); M25.562 Pain in left knee; M54.50 Low back pain, unspecified; M25.511 Pain in right shoulder; G47.00 Insomnia, unspecified; E78.5 Hyperlipidemia, unspecified; H00.019 Hordeolum externum unspecified eye, unspecified eyelid; M10.9 Gout, unspecified; M19.019 Primary osteoarthritis, unspecified shoulder; R70.0 Elevated erythrocyte sedimentation rate; R79.82 Elevated C-reactive protein (CRP) | CPT/HCPCS: 99212 ==